=== PATIENT | female | born 1950 | race Caucasian/White ===

== ENCOUNTER 2023-01-07 15:00 | Inpatient (IN) | payer OTHER ==
--- OUTSIDE RECORDS SUMMARY | 2023-01-07 15:04 | XMS REPORT | Continuity of Care Document ---
:1950 Author Organization [facility] t Address [address] [place] [id number] Care Team Providers Name Role Phone Mariel Diallo Attending Clinician Unavailable Van Diallo Attending Clinician Unavailable Jacqueline Todd Attending Clinician Unavailable Marianela Leonardo Attending Clinician Unavailable Aliya Mccormick Attending Clinician Jace_Tabatha Attending Clinician Unavailable Jaun_Dary Attending Clinician Unavailable July Zamorano Attending Clinician Jose David_Daniel Attending Clinician Unavailable Abhishekt_Tabatha Admitting Clinician Unavailable Adams_Dary Admitting Clinician Unavailable Canales_M Admitting Clinician Unavailable Payers Payer Name Policy Type Policy Number Effective Date Expiration Date [place] [facility] [id number] 2020 (MEDICARE 00:00:00 [facility] HMO) Problems This patient has no known problems. Allergies, Adverse Reactions, Alerts This patient has no known allergies or adverse reactions. Medications This patient has no known medications. Procedures This patient has no known procedures. Encounters Start End Encounter Admission Attending Care Care Encounter Source Date/Time Date/Time Type Type Clinicians Facility Department ID 2022-12-28 [id number] Common 08:10:02 Mariel [id number] [facility] 2022-12-[address] [facility] [id number] Common 14:48:00 Amriel [id number] [facility] 2022-12-26 Outpatient Diallo, [facility] [id number] Common 15:29:00 Mariel [id number] [facility] 2022-10-18 Outpatient Imani [facility] [id number] Common 14:56:01 Avnee [id number] [facility] 2022-10-16 Outpatient Diallo, [facility] [id number] Common 08:32:01 Avnee [id number] [facility] 2022-10-11 Outpatient Diallo, [facility] [id number] Common 08:11:01 Avnee [id number] [facility] 2022-06-21 Outpatient Peyton, STLMLC ST[facility] [id number] Common 11:32:01 Jacqueline [id number] [facility] 2022-02-09 Outpatient Leonardo, Na [facility] ST[facility] [id number] Common 08:45:02 [facility] 2021-10-13 Outpatient Leonardo, Na STLMLC STLMLC [id number] Common 09:18:05 [facility] 2022-05-25 2022-05-25 CAV Aliya Mccormick [id number]. [id number] [facility] 21:00:00 22:00:00 [id number] [facility] [id number] 2022-05-25 2022-05-25 Outpatient Hunt_A DMG DMG [id number] [facility] 00:00:00 00:00:00 [facility] 2022-05-25 2022-05-25 Outpatient Hunt_A DMG DMG [id number] [facility] 00:00:00 00:00:00 0120 [facility] 2022-05-25 2022-05-25 Outpatient Hunt_A DMG DMG [id number] [facility] 00:00:00 00:00:00 0506 [facility] 2022-05-23 2022-05-23 Outpatient Hunt_A DMG DMG [id number] [facility] 00:00:00 00:00:00 0110 [facility] 2022-02-15 2022-02-15 CAV Aliya Mccormick [id number]. [id number] [facility] 14:00:00 15:00:00 [id number] [id number] 2022-02-07 2022-02-07 Outpatient Hunt_A DMG DMG [id number] [facility] 00:00:00 00:00:00 09 [facility] 2021-12-04 2021-12-04 [place] [id number] [facility] 12:00:00 12:00:00 0724 [facility] 2021-11-30 2021-11-30 Outpatient Adams_R DMG DMG [id number] [facility] 11:30:00 11:30:00 07 [facility] 2021-11-25 2021-11-25 Outpatient Adams_R DMG DMG [id number] [facility] 03:37:00 03:37:00 0715 [facility] 2021-06-20 2021-06-20 CAV July [id number]. [id number]. [facility] [id number] [facility] 19:00:00 20:00:00 Zamorano [id number] [facility] [id number] 2021-06-14 2021-06-14 Outpatient Adams_R DMG DMG [id number] [facility] 01:09:00 01:09:00 020 [facility] 2021-05-10 2021-05-10 [place] [id number] [facility] 05:35:00 05:35:00 1228 [facility] 2021-03-14 2021-03-14 Outpatient Canales_M DMG DMG [id number] [facility] 04:30:00 04:30:00 1101 [facility] 2020-11-29 2020-11-29 Outpatient Canales_M DMG DMG [id number] [facility] 02:40:00 02:40:00 0719 [facility] 2020-11-02 2020-11-02 Outpatient DMG DMG [id number] [facility] 05:00:00 05:00:00 0622 [facility] Results This patient has no known results.
[2023-01-07 15:44] LABS: Absolute Lymphocytes (CBC) 1.6 K/uL (0.7-4.9); Hematocrit 46.4 % (36.0-45.0); Lymphocytes % 8.4 % (15.3-44.8); MCV 89.4 fL (80-100); MPV 9.2 fL (7.6-11.3); Platelets 262 thou/uL (152-406); RBC Red Blood Cell Count 5.19 M/uL (3.86-4.86)
[2023-01-07 15:53] LABS: Protime INR 1.35
[2023-01-07] MEDS ORDERED: NA CHLORIDE 0.9% 4,000 ML ONE (15:59)
[2023-01-07 16:01] LABS: Urine Bacteria None Seen /HPF (<20); Urine Bilirubin NEGATIVE (Negative); Urine Blood 2+ (Negative); Urine Clarity Extremely Turbid (Clear); Urine Color Yellow (Yellow); Urine Glucose NEGATIVE (Negative); Urine Mucus Slight /HPF (None Seen); Urine Protein 1+ (Negative); Urine RBC <5 /HPF (None Seen); Urine Urobilinogen Normal (Normal); Urine pH 5.5 (5.0-7.0)
[2023-01-07 16:35] LABS: Albumin 3.8 g/dL (3.4-5.0); Bilirubin Total 1.6 mg/dL (0.2-1.0); Protein, Total 7.8 g/dL (6.4-8.2)
[2023-01-07 16:38] LABS: Troponin High Sensitivity 172.2 pg/mL (<58.9)
[2023-01-07] MEDS ORDERED: POTASSIUM 25 MEQ EFFERV TAB ONE (17:03)
[2023-01-07] MEDS ORDERED: KCL 20 MEQ/100 mL IVPB 200 ML IV ONE ×2 (17:03→23:52)
--- NOTE | 2023-01-07 17:08 | RAD REPORT ---
EXAM DESCRIPTION: CT - Head C Spine Cap Wo Con - 01/07/2023 3:54 pm CLINICAL HISTORY: Confused;Syncope COMPARISON: No comparisons TECHNIQUE: Head and cervical spine CT images were obtained without IV contrast. Chest, abdomen, and pelvis CT images were obtained also without IV contrast. Multiplanar reformats were generated and rev iewed. All CT scans are performed using dose optimization technique as appropriate and may include automated exposure control or mA/KV adjustment according to patient size. FINDINGS: CT HEAD: No intracranial hemorrhage, mass effect, or edema. No evidence of acute territorial infarct. Right ba tracy ganglia focus of hypoattenuation is nonspecific, and favored to present a prominent perivascular space or small remote infarct. No midline shift or abnormal fluid collection. The ventricles are norm al in caliber and configuration for age. Basal cisterns are patent. Mastoid aircells and paranasal si nuses are clear. No acute skull fracture. CT CERVICAL SPINE: No acute cervical spine fracture or subluxation. Vertebral body heights are well maintained. Facet ericka ints are normal in alignment. No hyperattenuating canal hematoma. Prevertebral and paraspinous soft t issues are unremarkable. CT CHEST: No pneumothorax, pulmonary contusion or pleural fluid collection. No mediastinal hematoma and the aor ta and pulmonary arteries are unremarkable. Small ovoid soft tissue density along the left anterior c hest wall, measuring 1.5 centimeter, nonspecific, and may represent a small lymph node, or a nodular density in the breast. No abnormal axillary finding. No displaced rib fracture or other significant b saba finding. CT ABDOMEN/ PELVIS: No evidence of traumatic injury to solid abdominal viscera. Status post cholecystectomy. Supraumbilic al ventral fat left of midline measuring 4.2 x 3.2 cm. No bowel injury or significant finding. No elsi e air, free fluid or abnormal fat stranding. Bladder is decompressed with Vaz catheter in place. No significant bony finding. IMPRESSION: No acute traumatic findings. Right basal ganglia focus of hypoattenuation, may represent a prominent perivascular space or small r emote infarct. Small ovoid 1.5 cm soft tissue density in the anterior left chest wall, may represent a small lymph n ode or a nodular density in the breast. Mammogram correlation is recommended. Incidentally noted ventral supraumbilical hernia containing fat.
--- NOTE | 2023-01-07 17:09 | RAD REPORT ---
EXAM DESCRIPTION: Ramana Single View01/07/2023 4:05 pm CLINICAL HISTORY: AMS COMPARISON: No comparisons TECHNIQUE: Portable AP view of the chest. FINDINGS: The lungs are clear. No pneumothorax or effusion. The cardiomediastinal contours are unrem arkable. IMPRESSION: No acute cardiopulmonary process.
--- NOTE | 2023-01-07 17:18 | EDPHYS ---
Physician Documentation [facility] Name: Mone Cabrera Age: 72 yrs Sex: Female : 1950 Arrival Date: 01/07/2023 Time: 15:00 Bed 8 Private MD: ED Physician River Dunn HPI: 01/07 15:18 This 72 yrs old Female presents to ER via EMS with complaints of Altered Mental Status. snw 15:18 The patient presents with decreased mental status. Onset: The symptoms/episode snw began/occurred acutely. Possible causes: CVA or TIA, low blood sugar, syncope with lying on floor two days, heat exhaustion/stroke. Current symptoms: In the emergency department the patient's symptoms have improved. It is unknown whether or not the patient has had similar symptoms in the past. The patient has not recently seen a physician. found by neighbors on floor of her home, had not been seen in 2 days, pt does not have AC. Historical: - Allergies: 15:07 Unable to obtain; hb - Home Meds: 15:07 Unable to obtain [Active]; hb - PMHx: 15:07 Unable to Obtain; hb - PSHx: 15:07 Unable to Obtain; hb - Immunization history:: Adult Immunizations unknown. - Social history:: Smoking status: unknown. ROS: 15:17 Eyes: Negative for injury, pain, redness, and discharge, ENT: Negative for injury, snw pain, and discharge, Neck: Negative for injury, pain, and swelling. 15:17 Respiratory: Negative for shortness of breath, cough, wheezing, and pleuritic chest pain, Abdomen/GI: Negative for abdominal pain, nausea, vomiting, diarrhea, and constipation, Back: Negative for injury and pain, : Negative for injury, bleeding, discharge, and swelling, MS/Extremity: Negative for injury and deformity, Skin: Negative for injury, rash, and discoloration, Psych: Negative for depression, anxiety, suicide ideation, homicidal ideation, and hallucinations. 15:17 Constitutional: Positive for fatigue, malaise. 15:17 Cardiovascular: Positive for syncope. 15:17 Neuro: Positive for altered mental status, syncope, weakness. Exam: 15:14 Head/Face: Normocephalic, atraumatic. Eyes: Pupils equal round and reactive to light, snw extra-ocular motions intact. Lids and lashes normal. Conjunctiva and sclera are non-icteric and not injected. Cornea within normal limits. Periorbital areas with no swelling, redness, or edema. 15:14 Neck: Trachea midline, no thyromegaly or masses palpated, and no cervical lymphadenopathy. Supple, full range of motion without nuchal rigidity, or vertebral point tenderness. No Meningismus. Chest/axilla: Normal chest wall appearance and motion. Nontender with no deformity. No lesions are appreciated. 15:14 Respiratory: Lungs have equal breath sounds bilaterally, clear to auscultation and percussion. No rales, rhonchi or wheezes noted. No increased work of breathing, no retractions or nasal flaring. Abdomen/GI: Soft, non-tender, with normal bowel sounds. No distension or tympany. No guarding or rebound. No evidence of tenderness throughout. Back: No spinal tenderness. No costovertebral tenderness. Full range of motion. 15:14 Psych: Awake, alert, with orientation to person, place and time. Behavior, mood, and affect are within normal limits. 15:14 Constitutional: The patient appears alert, awake, obese, smells of urine, oriented to person, place 15:14 ENT: Mouth: Oral mucosa: dry, Tongue: dry. 15:14 Cardiovascular: Rate: tachycardic, Rhythm: regular. 15:14 Skin: Appearance: Color: pale, Temperature: warm, Moisture: dry. 15:14 Neuro: Orientation: to person, place, Mentation: able to follow commands, Memory: unable to test, Confused, Gait: not tested. Vital Signs: 15:03 BP 137 / 67; Pulse 107; Resp 18; Temp 99.9(O); Pulse Ox 95% on R/A; Weight 113.4 kg; hb Height 5 ft. 6 in. ; Pain 0/10; 15:45 BP 137 / 67; Pulse 100; Resp 18; Pulse Ox 95% on R/A; hb 16:51 BP 115 / 61; Pulse 90; Resp 23; Pulse Ox 96% ; hb 17:28 BP 110 / 58; Pulse 86; Resp 22; Pulse Ox 96% on R/A; hb 18:40 BP 113 / 61; Pulse 19; Resp 87; Pulse Ox 95% on R/A; hb 19:24 BP 106 / 62; Pulse 81; Resp 19; Pulse Ox 95% on R/A; hb 15:03 Body Mass Index 40.35 (113.40 kg, 167.64 cm) hb 15:03 Pain Scale: Adult hb NIH Stroke Scale Scores: 15:14 NIHSS Score: 2 snw Lincoln Coma Score: 15:14 Eye Response: spontaneous(4). Motor Response: obeys commands(6). Verbal Response: snw confused(4). Total: 14. MDM: 15:05 Patient medically screened. snw 15:20 Differential Diagnosis: CVA, electrolyte abnormality, hypoglycemia, sepsis, UTI, volume snw depletion. Data reviewed: vital signs, nurses notes. Historians other than the Patient: EMS: [facility]. Counseling: I had a detailed discussion with the patient and/or guardian regarding the historical points, exam findings, and any diagnostic results supporting the discharge/admit diagnosis, lab results, radiology results, the need for further work-up and treatment in the hospital. 17:17 Post IV fluid administration reassessment for Sepsis: Other: will give volume slowly snw 2nd to hyponatremia. ED course: will give total sepsis volume but slowly as pt is hyponatremic at 119. 18:15 Management of patient was discussed with the following: Hospitalist: Dr. Thomas posadas kindly accepts pt to ICU. 01/07 15:13 Order name: Blood Culture Adult (2) snw 01/07 15:13 Order name: CBC with Diff; Complete Time: 15:59 snw 01/07 15:13 Order name: CMP; Complete Time: 16:43 snw 01/07 15:13 Order name: Lactate w/ 2H reflex if indic.; Complete Time: 16:12 snw 01/07 15:13 Order name: Protime (+inr); Complete Time: 15:59 snw 01/07 15:13 Order name: Ptt, Activated; Complete Time: 15:59 snw 01/07 15:13 Order name: Urinalysis w/ reflexes; Complete Time: 16:04 snw 01/07 15:13 Order name: Troponin HS; Complete Time: 16:43 snw 01/07 15:13 Order name: CPK; Complete Time: 16:43 snw 01/07 18:50 Order name: Basic Metabolic Panel; Complete Time: 20:07 EDMS 01/07 18:50 Order name: Lactate w/ 2H reflex if indic. EDMS 01/07 18:50 Order name: Urinalysis w/ reflexes EDMS 01/07 18:50 Order name: Basic Metabolic Panel EDMS 01/07 18:50 Order name: Basic Metabolic Panel EDMS 01/07 18:50 Order name: Basic Metabolic Panel EDMS 01/07 18:50 Order name: Basic Metabolic Panel EDMS 01/07 18:50 Order name: CBC with Automated Diff EDMS 01/07 18:50 Order name: CBC with Automated Diff EDMS 01/07 18:50 Order name: CBC with Automated Diff EDMS 01/07 18:50 Order name: CBC with Automated Diff EDMS 01/07 18:50 Order name: Creatine Phosphokinase EDMS 01/07 18:50 Order name: Creatine Phosphokinase; Complete Time: 20:07 EDMS 01/07 18:50 Order name: Creatine Phosphokinase EDMS 01/07 18:50 Order name: Creatine Phosphokinase EDMS 01/07 18:50 Order name: Magnesium EDMS 01/07 18:50 Order name: Magnesium EDMS 01/07 18:50 Order name: Magnesium EDMS 01/07 18:50 Order name: Magnesium EDMS 01/07 18:50 Order name: Troponin High Sensitivity EDMS 01/07 18:50 Order name: Troponin High Sensitivity; Complete Time: 20:07 EDMS 01/07 18:50 Order name: Troponin High Sensitivity EDMS 01/07 18:50 Order name: Troponin High Sensitivity EDMS 01/07 19:46 Order name: Lactate Sepsis 2 HR Follow-up; Complete Time: 19:48 EDMS 01/07 15:13 Order name: Chest Single View XRAY; Complete Time: 17:12 snw 01/07 15:18 Order name: CT Traumagram (Head C Spine CAP wo con); Complete Time: 17:10 snw 01/07 15:13 Order name: EKG; Complete Time: 15:14 snw 01/07 18:50 Order name: Clear Liquid EDMS 01/07 15:13 Order name: Accucheck; Complete Time: 15:47 snw 01/07 15:13 Order name: Cardiac monitoring; Complete Time: 15:47 snw 01/07 15:13 Order name: Cath; Complete Time: 15:47 snw 01/07 15:13 Order name: EKG - Nurse/Tech; Complete Time: 16:51 snw 01/07 15:13 Order name: IV Saline Lock - Large Bore; Complete Time: 15:47 snw 01/07 15:13 Order name: Labs collected and sent; Complete Time: 15:47 snw 01/07 15:13 Order name: O2 Per Protocol; Complete Time: 15:54 snw 01/07 15:13 Order name: O2 Sat Monitoring; Complete Time: 15:53 snw 01/07 15:13 Order name: Vital Signs; Complete Time: 15:53 snw EC:45 Rate is 88 beats/min. Rhythm is irregular. QT interval is prolonged. Q waves are snw Present in leads II, III, aVF. Clinical impression: NSR w/ Non-specific ST/T Changes. Administered Medications: 16:56 Discontinued: NS 0.9% IV (30 ml/kg) 30 ml/kg IV at bolus once; Sepsis Protocol hb 15:40 Drug: NS 0.9% IV (30 ml/kg) 30 ml/kg Route: IV; Rate: bolus; Site: right forearm; hb 16:55 Drug: Potassium PO Effervescent Tablet 50 mEq Route: PO; hb 19:26 Follow up: Response: No adverse reaction hb 16:55 Drug: Potassium Chloride IV 20 mEq Route: IV; Rate: calculated rate; Site: right hb forearm; 19:26 Follow up: IV Status: Completed infusion; IV Intake: 100ml hb 19:04 Drug: Potassium Chloride IV 20 mEq Route: IV; Rate: calculated rate; Site: right ph antecubital; 19:26 Follow up: IV Status: Completed infusion; IV Intake: 100ml hb Disposition Summary: 01/07/23 17:17 Hospitalization Ordered Hospitalization Status: Inpatient Admission snw Provider: Tim Guzman Location: Intensive Care Unit snw Condition: Stable snw Problem: new snw Symptoms: are unchanged snw Bed/Room Type: Standard snw Room Assignment: 2-(01/07/23 18:48) mw Diagnosis - Hypo-osmolality and hyponatremia snw - Hypokalemia snw - Altered mental status, unspecified snw - Rhabdomyolysis snw Forms: - Medication Reconciliation Form snw - SBAR form snw - Leadership Thank You Letter snw NIH Stroke Scale - NIH Stroke Score Date: 01/07/2023 Time: 15:14 Total Score = 2 10. Dysarthria (speech clarity - read or repeat words) - 1(Mild to Moderate) 11. Extinction and Inattention (visual/tactile/auditory/spatial/personal) - 0(No abnormality) 1a. Level of Consciousness (LOC) - 0(Alert) 1b. Level of Consciousness (LOC) (Month \T\ Age) - 1(One) 1c. LOC Commands (Open \T\ Closes Eyes/Qa Tester) - 0(Both) 2. Best Gaze (Lateral Gaze Paresis) - 0(Normal) 3. Visual Field Loss - 0(No visual loss) 4. Facial Palsy - 0(Normal) 5a. Left Arm: Motor (10-second hold) - 0(No drift) 5b. Right Arm: Motor (10-second hold) - 0(No drift) 6a. Left Leg: Motor (5-second hold - always test supine) - 0(No drift) 6b. Right Leg: Motor (5-second hold - always test supine) - 0(No drift) 7. Limb Ataxia (finger/nose \T\ heel/rivera - test with eyes open) - 0(Absent) 8. Sensory Loss (pinprick arms/legs/face) - 0(Normal) 9. Best Language: Aphasia (description/naming/reading) - 0(No aphasia) Initials: w Signatures: Dispatcher [employer] EDMS Solange Elizondo RN RN mw Charley Chiu, CHIEF WRITER-C CHIEF WRITER-Csnw Madalyn López RN RN Angie Anderson RN RN Corrections: (The following items were deleted from the chart) 15:22 15:15 Head C Spine MPR Wo Con+CT.RAD.BRZ ordered. EDMS EDMS 18:48 17:17 snw mw
--- NOTE | 2023-01-07 17:18 | ER ---
Nurse[facility] Notes [facility] Name: Mone Cabrera Age: 72 yrs Sex: Female : 1950 Arrival Date: 01/07/2023 Time: 15:00 Bed 8 Private MD: Diagnosis: Hypo-osmolality and hyponatremia;Hypokalemia;Altered mental status, unspecified;Rhabdomyolysis Presentation: 01/07 15:03 Chief complaint: EMS states: Found down by neighbor, unknown downtime, last seen normal hb 2 days ago, home does not have AC. On scene pt altered, oriented to person only, BP 128/82, HR 100, T100. Coronavirus screen: At this time, the client does not indicate any symptoms associated with coronavirus-19. Ebola Screen: No symptoms or risks identified at this time. Initial Sepsis Screen: Does the patient meet any 2 criteria? HR > 90 bpm. No. Patient's initial sepsis screen is negative. Does the patient have a suspected source of infection? No. Patient's initial sepsis screen is negative. Risk Assessment: Do you want to hurt yourself or someone else? Patient reports no desire to harm self or others. Onset of symptoms was January 07, 2023. 15:03 Method Of Arrival: EMS: [facility] 15:03 Acuity: GUILHERME 2 hb Triage Assessment: 15:08 General: Appears in no apparent distress. Behavior is calm, cooperative. Pain: Denies hb pain. EENT: No signs and/or symptoms were reported regarding the EENT system. Neuro: Level of Consciousness is awake, alert, obeys commands, confused, Oriented to person. Cardiovascular: Patient's skin is warm and dry. Respiratory: Respiratory effort is even, unlabored, Respiratory pattern is regular, symmetrical. GI: No signs and/or symptoms were reported involving the gastrointestinal system. : No signs and/or symptoms were reported regarding the genitourinary system. Derm: No signs and/or symptoms reported regarding the dermatologic system. Skin is pink, warm \T\ dry. Musculoskeletal: No signs and/or symptoms reported regarding the musculoskeletal system. Historical: - Allergies: 15:07 Unable to obtain; hb - Home Meds: 15:07 Unable to obtain [Active]; hb - PMHx: 15:07 Unable to Obtain; hb - PSHx: 15:07 Unable to Obtain; hb - Immunization history:: Adult Immunizations unknown. - Social history:: Smoking status: unknown. Screenin:09 [facility] ED Fall Risk Assessment (Adult) Score/Fall Risk Level 3 or more points = High hb Risk Oriented to surroundings, Maintained a safe environment, Assessed \T\ reinforced patient's understanding of fall precautions. Abuse screen: Denies threats or abuse. Denies injuries from another. Nutritional screening: No deficits noted. Tuberculosis screening: No symptoms or risk factors identified. Assessment: 15:08 General: See triage assessment . hb 15:51 Reassessment: Neighbor/friend for transportation [phone]. hb 16:51 Reassessment: Patient appears in no apparent distress at this time. No changes from hb previously documented assessment. 17:43 Reassessment: Patient appears in no apparent distress at this time. No changes from hb previously documented assessment. Patient and/or family updated on plan of care and expected duration. Pain level reassessed. 18:40 Reassessment: Patient appears in no apparent distress at this time. No changes from hb previously documented assessment. Patient and/or family updated on plan of care and expected duration. Pain level reassessed. 19:24 Reassessment: REPORT TO ERIN VEGA FOR 2 ICU. hb Vital Signs: 15:03 BP 137 / 67; Pulse 107; Resp 18; Temp 99.9(O); Pulse Ox 95% on R/A; Weight 113.4 kg; hb Height 5 ft. 6 in. ; Pain 0/10; 15:45 BP 137 / 67; Pulse 100; Resp 18; Pulse Ox 95% on R/A; hb 16:51 BP 115 / 61; Pulse 90; Resp 23; Pulse Ox 96% ; hb 17:28 BP 110 / 58; Pulse 86; Resp 22; Pulse Ox 96% on R/A; hb 18:40 BP 113 / 61; Pulse 19; Resp 87; Pulse Ox 95% on R/A; hb 19:24 BP 106 / 62; Pulse 81; Resp 19; Pulse Ox 95% on R/A; hb 15:03 Body Mass Index 40.35 (113.40 kg, 167.64 cm) hb 15:03 Pain Scale: Adult hb [place] Coma Score: 15:14 Eye Response: spontaneous(4). Motor Response: obeys commands(6). Verbal Response: snw confused(4). Total: 14. NIH Stroke Scale Scores: 15:14 NIHSS Score: 2 snw ED Course: 15:03 Patient arrived in ED. hb 15:05 Charley Chiu FNP-C is PHCP. snw 15:05 River Dunn MD is Attending Physician. snw 15:07 Triage completed. hb 15:08 Arm band placed on. hb 15:09 Angie Anderson, RN is Primary Nurse. hb 15:09 Patient has correct armband on for positive identification. Placed in gown. Bed in low hb position. Call light in reach. Side rails up X2. Provided Education on: . 15:36 Inserted saline lock: 20 gauge in right forearm, using aseptic technique. Blood hb collected. 15:45 Vaz cath inserted, using sterile technique, 16 Fr., by nm, balloon inflated, to hb gravity drainage, urine specimen collected. 15:47 Troponin HS Sent. hb 15:47 CPK Sent. hb 15:47 Blood Culture Adult (2) Sent. hb 15:47 CBC with Diff Sent. hb 15:47 CMP Sent. hb 15:47 Lactate w/ 2H reflex if indic. Sent. hb 15:47 Protime (+inr) Sent. hb 15:47 Ptt, Activated Sent. hb 15:47 Urinalysis w/ reflexes Sent. hb 15:56 CT Traumagram (Head C Spine CAP wo con) In Process Unspecified. EDMS 16:06 Chest Single View XRAY In Process Unspecified. EDMS 17:06 Hoa patients daughter called she would like to be called at [phone]/ she lives eb in [facility]/ She plans on leaving tomorrow night/ She has to get a rent a car and be on her way. 17:16 Tim Guzman MD is Hospitalizing Provider. snw 19:25 No provider procedures requiring assistance completed. Patient admitted, IV remains in hb place. Administered Medications: 16:56 Discontinued: NS 0.9% IV (30 ml/kg) 30 ml/kg IV at bolus once; Sepsis Protocol hb 15:40 Drug: NS 0.9% IV (30 ml/kg) 30 ml/kg Route: IV; Rate: bolus; Site: right forearm; hb 16:55 Drug: Potassium PO Effervescent Tablet 50 mEq Route: PO; hb 19:26 Follow up: Response: No adverse reaction hb 16:55 Drug: Potassium Chloride IV 20 mEq Route: IV; Rate: calculated rate; Site: right hb forearm; 19:26 Follow up: IV Status: Completed infusion; IV Intake: 100ml hb 19:04 Drug: Potassium Chloride IV 20 mEq Route: IV; Rate: calculated rate; Site: right ph antecubital; 19:26 Follow up: IV Status: Completed infusion; IV Intake: 100ml hb Medication: 15:09 VIS not applicable for this client. hb Intake: 19:26 IV: 100ml; Total: 100ml. hb 19:26 IV: 100ml; Total: 200ml. hb Outcome: 17:17 Decision to Hospitalize by Provider. snw 19:25 Admitted to ICU accompanied by nurse, via stretcher, room 2, with chart, Report called hb to ERIN VEGA 19:25 Condition: stable 19:25 Instructed on the need for admit. 20:23 Patient left the ED. rv1 NIH Stroke Scale - NIH Stroke Score Date: 01/07/2023 Time: 15:14 Total Score = 2 10. Dysarthria (speech clarity - read or repeat words) - 1(Mild to Moderate) 11. Extinction and Inattention (visual/tactile/auditory/spatial/personal) - 0(No abnormality) 1a. Level of Consciousness (LOC) - 0(Alert) 1b. Level of Consciousness (LOC) (Month \T\ Age) - 1(One) 1c. LOC Commands (Open \T\ Closes Eyes/Parking Lot Laborer) - 0(Both) 2. Best Gaze (Lateral Gaze Paresis) - 0(Normal) 3. Visual Field Loss - 0(No visual loss) 4. Facial Palsy - 0(Normal) 5a. Left Arm: Motor (10-second hold) - 0(No drift) 5b. Right Arm: Motor (10-second hold) - 0(No drift) 6a. Left Leg: Motor (5-second hold - always test supine) - 0(No drift) 6b. Right Leg: Motor (5-second hold - always test supine) - 0(No drift) 7. Limb Ataxia (finger/nose \T\ heel/rivera - test with eyes open) - 0(Absent) 8. Sensory Loss (pinprick arms/legs/face) - 0(Normal) 9. Best Language: Aphasia (description/naming/reading) - 0(No aphasia) Initials: snw Signatures: Dispatcher [employer] EDCharley Jauregui, PAVER INSTALLER-C PAVER INSTALLER-Csnw Madalyn López, RN RN Angie Anderson, SILVIA RN Mone Mena, Bianca [email or web address] Corrections: (The following items were deleted from the chart) 15:10 15:03 BP 137 / 67; Pulse 103bpm; Resp 18bpm; Pulse Ox 95% RA; Temp 99.9F Oral; hb 113.4 kg; Height 5 ft. 6 in.; BMI: 40.3; Pain 0/10, Adult; hb 16:44 15:54 NS 0.9% IV (30 ml/kg) 30 ml/kg IV at bolus in right forearm hb snw
[2023-01-07] MEDS ORDERED: ACETAMINOPHEN 500 MG TAB PO PRN (18:48)
[2023-01-07] MEDS ORDERED: ONDANSETRON 4 MG/2 ML VIAL IV PRN (18:48)
--- NOTE | 2023-01-07 18:50 | P.HP ---
Certification for Inpatient Patient admitted to: Inpatient With expected LOS: <2 Midnights Patient will require the following post-hospital care: None Practitioner: I am a practitioner with admitting privileges, knowledge of patient current condition, hospital course, and medical plan of care. Services: Services provided to patient in accordance with Admission requirements found in Title 42 Section 412.3 of the Code of Federal Regulations Patient History Date of Service: 01/08/23 Reason for admission: Confusion History of Present Illness: 72 yrs old Female with past medical history HTN, HLD, Insomnia, Vit D deficency presents to the emergency room via EMS for syncope. She reports being dizzy, with being in house with no air conditioning this summer. She reports nausea, dehydration for the past week. with poor PO intake. Per HPI she was found by neighbors on floor after not being seen for 2 days.Plan to admit for Rhabdomyolysis,Hyponatremia, elevated troponin, hypokalemia, hypothyroidism, LEROY ER evaluation 3 BP 137 / 67; Pulse 107; Resp 18; Temp 99.9(O); Pulse Ox 95% on R/A; Weight 113.4 kg; hb Height 5 ft. 6 in. ; Pain 0/10; 4 Eye Response: spontaneous(4). Motor Response: obeys commands(6). Verbal Response: GCS 14 confused(4). Total: 14. Lab evaluation NA 119, K 2.0, Lactic acid 3.2, troponin 172.2, TSH 3.850 LEROY Bun 30, Cr 2.04, CK 6064 CT Head FINDINGS: CT HEAD:No intracranial hemorrhage, mass effect, or edema. N CTA MPRESSION: No acute traumatic findings Small ovoid 1.5 cm soft tissue density in the anterior left chest wall, may represent a small lymph node or nodular density in the breast. Mammogram correlation is recommended. CT cervial spine No acute cervical spine fracture or subluxation. CXR IMPRESSION: No acute cardiopulmonary process. Allergies "sleeping pill and pain pill togeth Adverse Reaction (Intermediate, Uncoded 11/10/16 08:13) Unknown Home Medications: NK [No Home Meds] 01/08/23 Review of Systems 10-point ROS is otherwise unremarkable Physical Examination - Physical Exam General: Alert, Oriented x2, Confused HEENT: Atraumatic, Normocephalic, PERRLA Neck: Supple, 2+ carotid pulse no bruit, JVD not distended Respiratory: Clear to auscultation bilaterally, Normal air movement Cardiovascular: No edema, Normal pulses, Regular rate/rhythm Capillary refill: <2 Seconds Gastrointestinal: Normal bowel sounds, Soft and benign Musculoskeletal: No clubbing, No swelling Integumentary: No rashes, No breakdown Neurological: Normal speech, Normal strength at 5/5 x4 extr, Sensation intact, Cranial nerves 3-12 intact - Studies Laboratory Data (last 24 hrs) 01/07/23 01/07/23 01/07/23 15:36 15:36 15:36 WBC 19.10 H Hgb 16.6 H Hct 46.4 H Plt Count 262 PT 14.8 H INR 1.35 APTT 25.6 Sodium 119 L* Potassium 2.0 L* BUN 30 H Creatinine 2.04 H Glucose 176 H Total Bilirubin 1.6 H AST 155 H ALT 84 H Alkaline Phosphatase 50 Assessment and Plan - Plan Assessment plan Rhabdomyolysis lactic acidosis Hyponatremia elevated troponin hypokalemia hypothyroidism Transaminitis LEROY DVT Assessment plan Rhabdomyolysis CK 6064 trend CK lactic acidosis Lactic acid 3.2 trend lactic 4L sepsis bolus in ED elevated troponin trend trop, troponin 172.2, Heparin subcu Hyponatremia hypokalemia K 2.0, trend electrolytes, replace prn NA 119, NS 75 LEROY LEROY Bun 30, Cr 2.04, neph consult hypothyroidism stat Synthroid, will need to dc on Syntroid, follow up w PCP to leroy levels TSH 3.850 CT Head FINDINGS: CT HEAD:No intracranial hemorrhage, mass effect, or edema. N CTA MPRESSION: No acute traumatic findings Small ovoid 1.5 cm soft tissue density in the anterior left chest wall, may represent a small lymph node or nodular density in the breast. Mammogram correlation is recommended. CT cervial spine No acute cervical spine fracture or subluxation. CXR IMPRESSION: No acute cardiopulmonary process. GCS Eye Response: spontaneous(4). Motor Response: obeys commands(6). Verbal Response: confused(4) 14 Lab evaluation NA 119, K 2.0, Lactic acid 3.2, troponin 172.2, TSH 3.850 LEROY Bun 30, Cr 2.04, CK 6064 ER evaluation 3 BP 137 / 67; Pulse 107; Resp 18; Temp 99.9(O); Pulse Ox 95% on R/A; Weight 113.4 kg; hb Transaminitis AST 155, ALT 54 Hepatitis panel Diet Cl liq full Code DVT Discharge Plan: Home Plan to discharge in: 48 Hours - Advance Directives Does patient have a Living Will: No Does patient have a Durable POA for Healthcare: No - Code Status/Comfort Care Code Status: Full Code Physician Review: Patient Assessed, Agree with Above Assessment and Plan Critical Care: No Time Spent Managing Pts Care (In Minutes): 50
[2023-01-07] MEDS ORDERED: NA CHLORIDE 0.9% 1,000 ML IV SCH (19:00)
[2023-01-07 20:06] LABS: Potassium 2.4 mEq/L (3.5-5.1); Troponin High Sensitivity 147.3 pg/mL (<58.9)
[2023-01-07] MEDS ORDERED: POTASSIUM 25 MEQ EFFERV TAB PO ONE (20:15)
[2023-01-07] MEDS ORDERED: POTASSIUM CL 40 MEQ in NA CHLORIDE 0.9% 500 ML IV SCH (21:00)
[2023-01-07 23:34] VITALS: BMI 31.6
[2023-01-07] MEDS: NA CHLORIDE 0.9% 1,000 ML IV SCH (23:46)
[2023-01-08] MEDS: HEPARIN 5000 UNIT/ML 1 ML VIAL SQ SCH ×3 (00:51→18:10)
[2023-01-08 03:26] LABS: Absolute Lymphocytes (CBC) 2.9 K/uL (0.7-4.9); Hematocrit 38.7 % (36.0-45.0); Lymphocytes % 19.2 % (15.3-44.8); MCV 89.6 fL (80-100); MPV 8.9 fL (7.6-11.3); Platelets 195 thou/uL (152-406); RBC Red Blood Cell Count 4.32 M/uL (3.86-4.86)
[2023-01-08 03:49] LABS: Magnesium 2.6 mg/dL (1.6-2.4); Phosphorus 2.5 mg/dL (2.5-4.9); Potassium 3.1 mEq/L (3.5-5.1)
[2023-01-08 04:22] LABS: Troponin High Sensitivity 122.2 pg/mL (<58.9)
[2023-01-08] MEDS: KCL 20 MEQ/100 mL IVPB 20 MEQ/100 ML BAG IV SCH ×2 (05:02→06:36)
[2023-01-08] MEDS: NA CHLORIDE 0.9% 1,000 ML IV SCH (06:36)
[2023-01-08 06:52] LABS: Hepatitis B Core IgM Nonreactive (Nonreactive); Hepatitis B surface AG Interp. Nonreactive (Nonreactive); Hepatitis C Virus Ab Nonreactive (Nonreactive)
[2023-01-08] MEDS ORDERED: D5W 1,000 ML IV SCH (10:15)
[2023-01-08 11:24] LABS: Troponin High Sensitivity 107.4 pg/mL (<58.9)
--- NOTE | 2023-01-08 12:15 | EKG ---
Test Date: 2023-01-07 Test Time: 16:44:14 Director [employer]: HB MEASUREMENT RESULTS: Intervals: Rate: 88 VA: 148 QRSD: 94 QT: 504 QTc: 609 [place]: P: 71 VA: 148 QRS: -22 T: 61 INTERPRETIVE STATEMENTS: Sinus rhythm with premature ventricular complexes or fusion complexes Cannot rule out Anterior infarct, age undetermined Prolonged QT Abnormal ECG No previous ECG available for comparison Electronically Signed On 01-08-23 12:12:28 CDT by Ede Nelson
[2023-01-08 13:02] LABS: Specific Gravity 1.011 (1.005-1.030); Urine Bacteria None Seen /HPF (<20); Urine Bilirubin NEGATIVE (Negative); Urine Blood 3+ (OVER) (Negative); Urine Clarity Extremely Turbid (Clear); Urine Color Colorless (Yellow); Urine Glucose TRACE (Negative); Urine Mucus Slight /HPF (None Seen); Urine Protein 1+ (Negative); Urine RBC <5 /HPF (None Seen); Urine Urobilinogen Normal (Normal); Urine pH 5.5 (5.0-7.0)
[2023-01-08 13:04] LABS: UR SODIUM < 5 mmol/L (27-287)
[2023-01-08 13:10] LABS: UR PROTEIN 23.7 mg/dL (<11.9); Urine Protein/Creatinine Ratio 0.35 ratio (<0.15)
[2023-01-08 13:49] LABS: Potassium 3.5 mEq/L (3.5-5.1)
[2023-01-08] MEDS ORDERED: POTASSIUM CL SA 10 MEQ TAB PO ONE (14:17)
[2023-01-08 17:12] LABS: Potassium 3.2 mEq/L (3.5-5.1)
--- NOTE | 2023-01-08 18:16 | P.PN ---
Subjective Date of Service: 01/08/23 Chief Complaint: Confusion Patient states she is feeling a lot better. Mental status is improved and currently oriented x3 and interacting meaningfully. She has been tolerating room air. Physical Examination - Vital Signs Temperature: 97.1 F Blood Pressure: 98/66 Pulse: 72 Respirations: 18 Pulse Ox (%): 98 Assessment And Plan - Plan Physical Exam General: Alert, Oriented x3, NAD Neck: Supple, JVD not distended Respiratory: Clear to auscultation bilaterally, Normal air movement Cardiovascular: No edema, Normal pulses, Regular rate/rhythm Gastrointestinal: Normal bowel sounds, Soft and benign Musculoskeletal: No clubbing, No swelling Integumentary: No rashes, No breakdown Neurological: Normal speech, Normal strength at 5/5 x4 extr, Sensation intact, Cranial nerves 3-12 intact Assessment plan Rhabdomyolysis lactic acidosis Hyponatremia elevated troponin hypokalemia hypothyroidism Transaminitis LEROY Assessment plan Rhabdomyolysis/lactic acidosis/LEROY. Aggressive IV fluid hydration. Monitor renal function Monitor CK level Lactic acidosis resolved. Nephrology is following. Acute metabolic encephalopathy AMS resolved. Leukocytosis No fever. UA negative for UTI Blood cultures: No growth today. Leukocytosis probably related to hemoconcentration from dehydration. Continue to monitor. NSTEMI Troponin trended flat. Likely secondary to demand ischemia. Hyponatremia Nephrology is following and managing. Hyponatremia likely secondary to dehydration. Monitor sodium level every 4 hours. Avoid overcorrection by more than 10 mEq/day Hypothyroidism TSH 3.850 Continue home dose Synthroid. Anterior chest wall lesion Mammogram as outpatient. Transaminitis Related to rhabdomyolysis. Monitor LFT full Code DVT: Heparin subQ
[2023-01-08] MEDS: D5W 1,000 ML IV SCH ×2 (18:17→22:13)
[2023-01-08] MEDS ORDERED: LEVOTHYROXINE SOD 0.112 MG TAB PO SCH (19:25)
[2023-01-08 19:39] LABS: Potassium 3.7 mEq/L (3.5-5.1)
[2023-01-08] MEDS ORDERED: POTASSIUM 25 MEQ EFFERV TAB PO ONE (21:00)
[2023-01-08 23:02] LABS: Potassium 3.4 mEq/L (3.5-5.1)
[2023-01-09] MEDS ORDERED: THIAMINE 200 MG/2 ML INJ IVP ONE (00:20)
[2023-01-09] MEDS: HEPARIN 5000 UNIT/ML 1 ML VIAL SQ SCH ×3 (00:39→16:07)
[2023-01-09] MEDS ORDERED: NA CHLORIDE 0.9% 1,000 ML IV SCH (01:00)
--- NOTE | 2023-01-09 03:13 | CON ---
Date of Consultation: 01/08/2023 Chief Complaint: Acute kidney injury, hyponatremia, hypokalemia. History Of Present Illness: The patient is a 72-year-old woman with past medical history of hyperten markus, hyperlipidemia, insomnia, vitamin D deficiency. The patient presented to emergency room via EM S because of syncope. She has episodes of being dizzy, lightheaded. She was found by neighbors on t he floor. She does not have AC during this summer. She complained of nausea, volume depletion. She denied diarrhea or constipation. Denied kidney stone, hematuria, or dysuria. The patient was admit madelyn to ICU for severe electrolyte abnormalities. Sodium level was 119, potassium was 2.0. Patient w as treated for hypokalemia and potassium level is gradually improving. Patient was started on normal saline for hyponatremia. Past Medical History: Includes hypertension and she denies history of hyponatremia, although she has history of hypothyroidism. The patient is not a good historian. She denies pain. Prior to this ad mission, she had syncope, was found on the floor and during this admission, she was found to have eliseo vated troponin and CK level. The patient is on IV fluids for acute kidney injury, rhabdomyolysis and is she is on electrolytes replacement protocol. Electrolytes have been checked every 4 to 6 hours. Review of Systems: Constitutional: Denies fever, chills. Eyes: Denies vision changes. Ears, Nose, mouth, and Throat: Denies sore throat, earache. Respiratory: Denies wheezing, cough. GI: Denies melena, hematemesis. : Denies hematuria, dysuria. Musculoskeletal: Complaining of generalized weakness, overall improved. All other systems reviewed and all are negative. Past Medical History: Hypertension, hyperlipidemia, insomnia, vitamin D deficiency. Social History: Denies tobacco, alcohol, or illicit drugs. Family History: No kidney disease in the family. Physical Examination: GENERAL: Patient is awake, oriented x2, remains confused. Eyes: Anicteric sclerae. EOMI. Ears, nose, mouth, and throat: Oral mucosa moist. No pallor. Neck: Supple. No bruits. Lungs: Diminished breath sounds at bases. Heart: S1, S2. Abdomen: Soft, benign. Extremities: No edema. Laboratory Data: Hemoglobin level is 16.6, WBC 19.1, platelet count is 262. On arrival to emergency room, lab work showed sodium 119, potassium 2.0, BUN 30, creatinine 2.04, glucose 176, AST 155, ALT 84, AP 50. Impression: 1.Severe hyponatremia, hypokalemia. The patient was started on normal saline and the patient will c ontinue IV fluids. Adjust IV fluids for treatment of hyponatremia. The patient was found to have el evated troponin. Monitor CK level. Continue IV fluids for acute kidney injury and rhabdomyolysis. Patient has prerenal azotemia due to volume depletion. 2.Electrolyte abnormalities, on treatment with potassium chloride replacement and normal saline. Ad just fluids for gradual correction of hyponatremia. Sodium level has already improved. Monitor elec trolytes and adjust treatment accordingly. 3.Check TSH level due to the fact that patient has hyponatremia. Plan is to rule out hypothyroidism as cause of electrolyte abnormalities. MARIANNE/MODL Voice ID: [id number] Report ID: [id number]
[2023-01-09 05:20] LABS: Absolute Lymphocytes (CBC) 2.8 K/uL (0.7-4.9); Hematocrit 37.6 % (36.0-45.0); Lymphocytes % 29.3 % (15.3-44.8); MCV 91.6 fL (80-100); MPV 8.9 fL (7.6-11.3); Platelets 180 thou/uL (152-406); RBC Red Blood Cell Count 4.11 M/uL (3.86-4.86)
[2023-01-09 05:24] LABS: Potassium 3.9 mEq/L (3.5-5.1)
[2023-01-09] MEDS ORDERED: D5W 1,000 ML IV SCH ×2 (07:00→11:00)
[2023-01-09] MEDS ORDERED: D5W 300 ML IV SCH (07:00)
--- NOTE | 2023-01-09 07:10 | P.PN ---
Date of Service: 01/09/23 Subjective: Feeling better today Downgraded to floor today appetite improving denies chest pain no acute events overnight ROS: 10 point ROS as noted above, otherwise negative Physical Exam: GEN: Alert, oriented, NAD HEENT: Normal conjunctiva, sclera anicteric CV: Regular rate and rhythm, no edema Pulm: Nonlabored respirations on room air, clear bilaterally ABD: Soft, nontender, nondistended Neuro: Normal speech, normal affect vitals reviewed Problem List: Rhabdomyolysis secondary to heat exhaustion lactic acidosis LEROY Acute metabolic encephalopathy, resolved Leukocytosis Hyponatremia NSTEMI hypokalemia hypothyroidism Transaminitis Rhabdomyolysis secondary to heat exhaustion lactic acidosis LEROY Nephrology is following Cont Aggressive IVF Monitor renal function Monitor CK level Lactic acidosis resolved. secondary to rhabdo/LEROY/heat PT consult Leukocytosis Afebrile throughout hospitalization UA does not suggest UTI Blood cultures: NGTD Leukocytosis probably related to hemoconcentration from dehydration / reactive Continue to monitor. NSTEMI Troponin trended flat. Likely secondary to demand ischemia. Hyponatremia Nephrology consulted Likely secondary to dehydration. Monitor sodium levels Hypothyroidism TSH 3.850 Continue home Synthroid. Anterior chest wall lesion Mammogram as outpatient. Transaminitis Related to rhabdomyolysis. Monitor LFT VTE: Heparin sq Code: Full Dispo: home ~2-3 days Downgraded from ICU today
[2023-01-09] MEDS: THIAMINE 200 MG/2 ML INJ IVP SCH (07:52)
[2023-01-09] MEDS: POTASSIUM CL SA 10 MEQ TAB PO SCH ×2 (07:52→21:01)
[2023-01-09 11:33] LABS: Potassium 3.7 mEq/L (3.5-5.1)
[2023-01-09] MEDS ORDERED: POTASSIUM CL 40 MEQ in NA CHLORIDE 0.9% 500 ML IV SCH (15:00)
--- NOTE | 2023-01-09 15:31 | PN ---
Date of Progress Note: 01/09/2023 Subjective: The patient was admitted to the hospital with hyponatremia. Sodium was 129. Her hypona tremia was depletional, supported with the lab. The patient was started on IV hydration. Sodium gra dually trending up. Physical Examination: Vital Signs: Blood pressure 111/58, pulse of 89, afebrile. Chest: Clear to auscultation. Heart: S1, S2. Regular. Abdomen: Soft, nontender. Extremities: No edema. Neurologic: Alert. No focality. Laboratory Data: Sodium 129, potassium 3.7, bicarb 26, BUN 17, creatinine 0.9, calcium 8.5, hemoglob in 13.5. Current Medications: The patient on include; 1.Heparin. 2.Zofran. 3.D5 at 100. 4.KCl. Assessment And Plan: 1.Hyponatremia secondary to depletional, supported with urine sodium less than 5, appropriate rise o f the sodium currently over the last 43 hours. The patient juan ramon by 10 point. I am going to disconti nue D5 and I am going to continue to monitor the patient and we will follow up. 2.Hypertension, controlled, optimal. Continue current treatment. 3.Hypokalemia. We will supplement. ALEXX/ACACIA Voice ID: [id number] Report ID: [id number]
[2023-01-09 19:31] LABS: UR SODIUM < 15 mmol/L (27-287)
[2023-01-10] MEDS: HEPARIN 5000 UNIT/ML 1 ML VIAL SQ SCH ×3 (01:07→16:20)
[2023-01-10 02:38] LABS: Absolute Lymphocytes (CBC) 2.6 K/uL (0.7-4.9); Lymphocytes % 26.3 % (15.3-44.8); MCV 92.3 fL (80-100); Platelets 167 thou/uL (152-406); RBC Red Blood Cell Count 4.01 M/uL (3.86-4.86)
[2023-01-10 03:50] LABS: Albumin 2.9 g/dL (3.4-5.0); Potassium 4.2 mEq/L (3.5-5.1)
[2023-01-10 03:55] LABS: Thyroid Stimulating Hormone 8.02 uIU/mL (0.358-3.740)
[2023-01-10] MEDS ORDERED: POTASS/SODIUM PHOSPHATE 1 PKT POWD.PACK PO SCH (04:19)
[2023-01-10] MEDS: POTASS/SODIUM PHOSPHATE 1 PKT POWD.PACK PO SCH ×4 (04:34→20:02)
[2023-01-10] MEDS ORDERED: LEVOTHYROXINE SOD 0.075 MG TAB PO SCH (07:16)
--- NOTE | 2023-01-10 07:32 | P.PN ---
Date of Service: 01/10/23 Subjective: Feeling better today slept well overnight no new / worsening problems Ambulating around room ROS: 10 point ROS as noted above, otherwise negative Physical Exam: GEN: Alert, oriented, NAD HEENT: Normal conjunctiva, sclera anicteric CV: Regular rate and rhythm, no edema Pulm: Nonlabored respirations on room air, clear bilaterally ABD: Soft, nontender, nondistended Neuro: Normal speech, normal affect vitals reviewed Problem List: Rhabdomyolysis secondary to heat exhaustion lactic acidosis LEROY Acute metabolic encephalopathy, resolved Leukocytosis Hyponatremia NSTEMI hypokalemia hypothyroidism Transaminitis Rhabdomyolysis secondary to heat exhaustion lactic acidosis LEROY Nephrology is following Cont Aggressive IVF Monitor renal function CK improving Lactic acidosis resolved. secondary to rhabdo/LEROY/heat PT consult Leukocytosis Afebrile throughout hospitalization UA does not suggest UTI Blood cultures: NGTD Leukocytosis probably related to hemoconcentration from dehydration / reactive Continue to monitor. NSTEMI Troponin trended flat Likely secondary to demand ischemia Hyponatremia Nephrology consulted Likely secondary to dehydration. Monitor sodium levels Hypothyroidism TSH 8.02 Continue home Synthroid. Anterior chest wall lesion Mammogram as outpatient. Transaminitis Related to rhabdomyolysis. Monitor LFT VTE: Heparin sq Code: Full Dispo: home ~2days
[2023-01-10] MEDS: POTASSIUM CL SA 10 MEQ TAB PO SCH ×2 (09:25→20:02)
[2023-01-10] MEDS: THIAMINE 200 MG/2 ML INJ IVP SCH (09:26)
--- NOTE | 2023-01-10 15:51 | PN ---
Date of Progress Note: 01/10/2023 Subjective: The patient was admitted to the hospital with hyponatremia, acute kidney injury, hypokal emia. The patient was started on hydration. The patient feeling better. Physical Examination: Vital Signs: Blood pressure 138/59, pulse of 82, afebrile. Chest: Clear to auscultation. Heart: S1, S2 regular. Abdomen: Soft nontender. Extremities: No edema. Laboratory Data: Hemoglobin 13.2, sodium 135, potassium 4.2, bicarb 26, BUN 13, creatinine 0.8 calci um 8.1, phos 4.1, magnesium of 2. CK down to 1400. TSH 8. Cortisol of 12. PC ratio 0.3. Current Medications: The patient on include: 1.Heparin. 2.Tylenol. 3.Zofran. 4.Levothyroxine. 5.Thiamin. Assessment And Plan: 1.Acute kidney injury secondary to prerenal, recovered resolved. 2.Hyponatremia secondary to depletional, resolved. 3.Hypophosphatemia. I am going to supplement. 4.Hypothyroidism. We will increase levothyroxine to 100. We will follow up the patient. 5.Deconditioning. Continue PT, OT. ALEXX/ACACIA Voice ID: [id number] Report ID: [id number]
[2023-01-11] MEDS: HEPARIN 5000 UNIT/ML 1 ML VIAL SQ SCH ×3 (00:49→16:40)
[2023-01-11] MEDS: LEVOTHYROXINE SOD 0.1 MG TAB PO SCH (06:12)
--- NOTE | 2023-01-11 07:21 | P.PN ---
Date of Service: 01/11/23 Subjective: feeling better, walked with PT no new/worsening symptoms tolerating diet ROS: 10 point ROS as noted above, otherwise negative Physical Exam: GEN: Alert, oriented, NAD HEENT: Normal conjunctiva, sclera anicteric CV: Regular rate and rhythm, no edema Pulm: Nonlabored respirations on room air, clear bilaterally ABD: Soft, nontender, nondistended Neuro: Normal speech, normal affect vitals reviewed Problem List: Rhabdomyolysis secondary to heat exhaustion lactic acidosis LEROY, resolved Acute metabolic encephalopathy, resolved Leukocytosis Hyponatremia NSTEMI hypokalemia hypothyroidism Transaminitis Rhabdomyolysis secondary to heat exhaustion lactic acidosis LEROY Nephrology is following LEROY resolved with IVF Monitor renal function CK improving Lactic acidosis resolved. secondary to rhabdo/LEROY/heat PT consult Leukocytosis Afebrile throughout hospitalization UA does not suggest UTI Blood cultures: NGTD Leukocytosis probably related to hemoconcentration from dehydration / reactive Continue to monitor. NSTEMI Troponin trended flat Likely secondary to demand ischemia Hyponatremia Nephrology consulted Likely secondary to dehydration. Monitor sodium levels Hypothyroidism TSH 8.02 Continue home Synthroid. Anterior chest wall lesion Mammogram as outpatient. Transaminitis Related to rhabdomyolysis. Monitor LFT VTE: Heparin sq Code: Full Dispo: home ~1day AC has been fixed
[2023-01-11 08:08] LABS: Phosphorus 2.1 mg/dL (2.5-4.9); Potassium 3.7 mEq/L (3.5-5.1)
[2023-01-11] MEDS: POTASSIUM CL SA 10 MEQ TAB PO SCH ×2 (10:01→20:09)
[2023-01-11] MEDS: THIAMINE 200 MG/2 ML INJ IVP SCH (10:02)
[2023-01-11] MEDS: POTASS/SODIUM PHOSPHATE 1 PKT POWD.PACK PO SCH ×2 (10:02→20:10)
--- NOTE | 2023-01-11 22:16 | PN ---
Date of Progress Note: 01/11/2023 Chief Complaint: Acute kidney injury, severe hyponatremia. Subjective: Patient is feeling better. Hyponatremia is gradually improved. Patient was found to rooney ve hyponatremia, acute kidney injury, hypokalemia, and volume depletion. Patient is feeling better. Review of Systems: Denies chest pain, palpitation. Physical Examination: Lungs: Clear to auscultation bilaterally. Heart: S1, S2. Abdomen: Soft. Extremities: No edema. Impression And Plan: 1.Acute kidney injury secondary to prerenal azotemia, nonoliguric acute tubular necrosis. Renal fun ction has improved. Continue current treatment with IV fluids as needed. The patient tolerates p.o. intake. 2.Hyponatremia. Cortisol level was 12. Re-evaluate cortisone level. 3.TSH was 8. Patient may need levothyroxine. Patient had levothyroxine increased to 100. 4.Hypophosphatemia. Patient is getting treatment for hypophosphatemia. 5.Hyponatremia secondary to depletional hyponatremia, resolved with IV fluids. Continue to monitor. EB/MODL Voice ID: [id number] Report ID: [id number]
[2023-01-12] MEDS: HEPARIN 5000 UNIT/ML 1 ML VIAL SQ SCH ×2 (01:09→07:53)
[2023-01-12 04:00] LABS: Albumin 2.9 g/dL (3.4-5.0); Phosphorus 3.1 mg/dL (2.5-4.9); Potassium 3.8 mEq/L (3.5-5.1)
[2023-01-12] MEDS: LEVOTHYROXINE SOD 0.1 MG TAB PO SCH (05:37)
[2023-01-12 07:52] VITALS: O2SAT 96
[2023-01-12] MEDS: POTASSIUM CL SA 10 MEQ TAB PO SCH (07:52)
[2023-01-12] MEDS: THIAMINE 200 MG/2 ML INJ IVP SCH (07:53)
[2023-01-12] MEDS: POTASS/SODIUM PHOSPHATE 1 PKT POWD.PACK PO SCH (07:54)
--- NOTE | 2023-01-12 08:09 | P.DS ---
Admission Date: 01/07/23 Discharge Date: 01/12/23 Disposition: DC HOME/HOME HEALTH CARE Discharge Condition: GOOD Reason for Admission: Confusion Consultations: Nephrology - Dr. Mckeon Brief History of Present Illness: 72 yo F, PMH: HTN, HLD, Insomnia, Vit D deficency Patient presents to the emergency room via EMS for syncope. She reports being dizzy, with being in house with no air conditioning this summer. She reports nausea, dehydration for the past week. with poor PO intake. Per HPI she was found by neighbors on floor after not being seen for 2 days.Plan to admit for Rhabdomyolysis,Hyponatremia, elevated troponin, hypokalemia, hypothyroidism, LEROY Hospital Course: Problem List: Rhabdomyolysis secondary to heat exhaustion lactic acidosis, hypoNa, hypoK, leukocytosi secondary to heat exhaustion/rhabdo LEROY, resolved Acute metabolic encephalopathy, resolved NSTEMI - demand ischemia hypothyroidism Transaminitis Patient presented with dizziness, syncope. She was found to have an LEROY / rhabdomyolysis / hyponatremia secondary to heat exhaustion / dehydration. She reported not having working AC at home and temps have been >100 lately Bloodwork and symptoms improved with IV fluids. Patient was feeling better, tolerating diet, ambulating, labs improved, and deemed stable for discharge home. During her hospitalization, there was a mild elevation of troponin 172 and recheck down to 107 felt to be secondary to demand ischemia in the setting of hypotension / leroy / rhabdo. Patient did not have any chest pain. No further ischemic workup done while inpatient. Recommend to follow up with cardiology as outpatient. TSH: 8.020 (normal range: 0.358-03.740) Free T4: 1.33 (normal range: 0.76-1.46) Recommend repeat levels in few weeks with PCP for further monitoring and adjustments of medications if needed continue home dose of 75mcg synthroid No new/changes in medications on discharge Follow up: PCP 3-5 days Nephrology in 1-2 weeks Cardiology in 1-2 weeks Incidentally found on CT head/chest/abdomen/pelvis: 1. Small ovoid soft tissue density along the left anterior chest wall, measuring 1.5 cm, nonspecific, and may represent a small lymph node, or a nodular density in the breast Recommend follow up mammogram as outpatient for for further eval / monitoring 2. 4.2x3.2 cm Ventral supraumbilical hernia containing fat Follow up with PCP / GI for further eval / monitoring Physical Exam: GEN: Alert, oriented, NAD HEENT: Normal conjunctiva, sclera anicteric CV: Regular rate and rhythm, no edema Pulm: Nonlabored respirations on room air, clear bilaterally ABD: Soft, nontender, nondistended Neuro: Normal speech, normal affect Vital Signs/Physical Exam: Temp Pulse Resp BP Pulse Ox 97.4 F 87 16 114/54 L 95 01/12/23 04:00 01/12/23 04:00 01/12/23 04:00 01/12/23 04:00 01/12/23 04:00 Laboratory Data at Discharge: WBC 9.70 thou/uL (4.3-10.9) 01/10/23 02:09 Hgb 13.2 g/dL (12.0-15.0) 01/10/23 02:09 Hct 37.0 % (36.0-45.0) 01/10/23 02:09 Plt Count 167 thou/uL (152-406) 01/10/23 02:09 PT 14.8 SECONDS (9.5-12.5) H 01/07/23 15:36 INR 1.35 01/07/23 15:36 APTT 25.6 SECONDS (24.3-36.9) 01/07/23 15:36 Sodium 137 mEq/L (136-145) 01/12/23 02:18 Potassium 3.8 mEq/L (3.5-5.1) 01/12/23 02:18 BUN 10 mg/dL (7-18) 01/12/23 02:18 Creatinine 0.81 mg/dL (0.55-1.02) 01/12/23 02:18 Glucose 100 mg/dL (74-106) 01/12/23 02:18 Uric Acid 6.0 mg/dL (2.6-6.0) 01/10/23 02:09 Phosphorus 3.1 mg/dL (2.5-4.9) 01/12/23 02:18 Magnesium 2.0 mg/dL (1.6-2.4) 01/10/23 02:09 Total Bilirubin 1.6 mg/dL (0.2-1.0) H 01/07/23 15:36 AST 155 U/L (15-37) H 01/07/23 15:36 ALT 84 U/L (13-56) H 01/07/23 15:36 Alkaline Phosphatase 50 U/L (45-117) 01/07/23 15:36 Home Medications: Alendronate Sodium 70 mg PO EVERY 7TH DAY 01/12/23 Levothyroxine Sodium [Levoxyl] 75 mcg PO DAILY 01/12/23 Pantoprazole [Protonix Tab*] 40 mg PO DAILY 01/12/23 Rosuvastatin [Crestor*] 10 mg PO BEDTIME 01/12/23 Physician Discharge Instructions: Patient presented with dizziness, syncope. She was found to have an LEROY / rhabdomyolysis / hyponatremia secondary to heat exhaustion / dehydration. She reported not having working AC at home and temps have been >100 lately Bloodwork and symptoms improved with IV fluids. Patient was feeling better, tolerating diet, ambulating, labs improved, and deemed stable for discharge home. During her hospitalization, there was a mild elevation of troponin 172 and recheck down to 107 felt to be secondary to demand ischemia in the setting of hypotension / leroy / rhabdo. Patient did not have any chest pain. No further ischemic workup done while inpatient. Recommend to follow up with cardiology as outpatient. TSH: 8.020 (normal range: 0.358-03.740) Free T4: 1.33 (normal range: 0.76-1.46) Recommend repeat levels in few weeks with PCP for further monitoring and adjus tments of medications if needed continue home dose of 75mcg synthroid No new/changes in medications on discharge Follow up: PCP 3-5 days Nephrology in 1-2 weeks Cardiology in 1-2 weeks Incidentally found on CT head/chest/abdomen/pelvis: 1. Small ovoid soft tissue density along the left anterior chest wall, measuring 1.5 cm, nonspecific, and may represent a small lymph node, or a nodular density in the breast Recommend follow up mammogram as outpatient for for further eval / monitoring 2. 4.2x3.2 cm Ventral supraumbilical hernia containing fat Follow up with PCP / GI for further eval / monitoring Followup: Rolan Mckeon MD [ACTIVE - CAN ADMIT] - 1-2 Weeks (Call for appointment.) Ede Nelson MD [ACTIVE - CAN ADMIT] - 1-2 Weeks (Call for appointment.) Mariel Diallo MD [Primary Care Provider] - 1-2 Weeks (Call for appointment.) Time spent managing pt's care (in minutes): 45
[2023-01-12 08:57] VITALS: BP 99/56; TEMP 97.5
== END 2023-01-12 10:58 | disposition home or self-care (01) | DRG 640 ==
LOC: ER 15:00 → ERHOLD 18:42 → 3RD-ICU 19:12 → 2ND 01-09 06:40
PROVIDERS: ADMIT Internal Medicine; ATTEND Hospitalist
DX: E87.1 Hypo-osmolality and hyponatremia (principal); G93.41 Metabolic encephalopathy; I21.A1 Myocardial infarction type 2; N17.0 Acute kidney failure with tubular necrosis; M62.82 Rhabdomyolysis; T67.5XXA Heat exhaustion, unspecified, initial encounter; E87.20 Acidosis, unspecified; E87.6 Hypokalemia; E86.0 Dehydration; E83.39 Other disorders of phosphorus metabolism; J98.8 Other specified respiratory disorders; E86.9 Volume depletion, unspecified; E78.5 Hyperlipidemia, unspecified; G47.00 Insomnia, unspecified; E03.9 Hypothyroidism, unspecified; R77.8 Other specified abnormalities of plasma proteins; R74.01 Elevation of levels of liver transaminase levels; Z88.8 Allergy status to other drugs, medicaments and biological substances; Z79.890 Hormone replacement therapy; Z79.899 Other long term (current) drug therapy
CPT/HCPCS: 36415; 51702; 70450; 71045; 71250; 72125; 80048; 80053; 80069; 80074; 81001; 82533; 82550; 82570; 83605; 83735; 83935; 84100; 84132; 84156; 84300; 84439; 84443; 84484; 84550; 85025; 85610; 85730; 87040; 93005; 97116; 97161; 97530; 99285; J1644; J3411; J3480; J7030; J7040; J7060